=== PATIENT | female | born 1945 | race Caucasian/White ===

== ENCOUNTER 2025-01-21 11:00 | Inpatient (IN) ==
[2025-01-21] MEDS: ONDANSETRON 4 MG/2 ML VIAL IV ONE (11:32)
[2025-01-21] MEDS: HYDROmorphone 0.5 MG/0.5 ML SYRINGE IV PRN ×2 (11:56→15:02)
[2025-01-21 12:20] LABS: Basophils # (Auto) 0.02 K/mcL (0.00-0.30); Basophils % (Auto) 0.1 % (0.0-2.0); Eosinophils # (Auto) 0.26 K/mcL (0.00-0.70); Eosinophils % (Auto) 1.9 % (0.0-7.0); Hematocrit 35.9 % (34.1-44.9); Hemoglobin 11.4 g/dL (11.2-15.7); Lymphocytes # (Auto) 0.91 K/mcL (1.50-4.80); Lymphocytes % (Auto) 6.7 % (15.5-49.0); Mean Cell Volume 98.6 fL (80.0-100.0); Mean Corpuscular HGB Conc 31.8 g/dL (31.0-36.0); Mean Platelet Volume 9.9 fL (8.8-12.5); Monocytes # (Auto) 0.61 K/mcL (0.10-0.90); Monocytes % (Auto) 4.5 % (1.0-12.0); Neutrophils % (Auto) 85.9 % (38.0-78.0); Platelet Count 215 K/mcL (140-440); RBC 3.64 M/mcL (3.59-5.38); Red Cell Distribution Width 14.1 % (11.5-14.5); WBC 13.5 K/mcL (4.5-11.0)
[2025-01-21 12:38] LABS: INR 0.9 (0.9-1.1); Prothrombin Time 12.8 sec (11.9-14.5)
[2025-01-21 12:39] LABS: ALT/SGPT 26 U/L (<40); AST/SGOT 25 U/L (<32); Albumin 3.8 gm/dL (3.2-5.2); Albumin/Globulin Ratio 1.8 (1.0-2.3); Alkaline Phosphatase 68 U/L (39-117); Bilirubin,Total 0.5 mg/dL (0.1-1.0); Blood Urea Nitrogen 40 mg/dL (8-23); Calcium 9.2 mg/dL (8.6-10.4); Carbon Dioxide 26 mmol/L (22-30); Chloride 105 mmol/L (96-108); Globulin 2.1 gm/dL (2.2-3.7); Glomerular Filtration Rate 32; Glucose 163 mg/dL (70-105); Potassium 3.7 mmol/L (3.3-5.1); Sodium 142 mmol/L (133-145)
[2025-01-21 13:15] LABS: Appearance,Urine Clear (Clear); Bilirubin,Urine Negative (Negative); Color,Urine Yellow; Glucose,Urine (UA) Negative (Negative); Ketones,Urine Negative (Negative); Leukocyte Esterase,Urine Negative /uL (Negative); Nitrate,Urine Negative (Negative); PH,Urine 5.5 (5.0-9.0); Protein,Urine Negative (Negative); Specific Gravity,Urine 1.015 (1.000-1.035); Urine Blood Negative ery/mcL (Negative); Urobilinogen,Urine Normal
[2025-01-21] MEDS ORDERED: HYDROcodone/APAP 5/325MG TABLET PO PRN (14:07)
[2025-01-21] MEDS: ACETAMINOPHEN 1,000 MG/100 ML BAG IV SCH (14:39)
[2025-01-21] MEDS: 0.9 % SODIUM CHLORIDE 1,000 ML IV SCH (14:39)
[2025-01-21] MEDS: 0.9 % SODIUM CHLORIDE 10 ML SYRINGE IV SCH (14:39)
[2025-01-21] MEDS ORDERED: PROPOFOL 200 MG/20 ML VIAL IV ONE (16:33)
[2025-01-21] MEDS ORDERED: DEXAMETHASONE 10 MG/ML VIAL ONE (16:33)
[2025-01-21] MEDS ORDERED: TRANEXAMIC ACID 1,000 MG/10 ML VIAL ONE (16:33)
[2025-01-21] MEDS ORDERED: LIDOCAINE 2% PF 5 ML VIAL ONE (16:33)
[2025-01-21] MEDS ORDERED: KETAMINE 50 MG/ML Syringe IV ONE (16:33)
[2025-01-21] MEDS ORDERED: ONDANSETRON 4 MG/2 ML VIAL ONE (16:33)
[2025-01-21] MEDS ORDERED: ceFAZolin 1 GM VIAL ONE (17:34)
[2025-01-21] MEDS ORDERED: HYDROmorphone 0.5 MG/0.5 ML SYRINGE IV PRN (18:26)
[2025-01-21] MEDS ORDERED: diphenhydrAMINE 50 MG/ML VIAL IV PRN (18:26)
[2025-01-21] MEDS ORDERED: NALOXONE HCL 0.4 MG/ML VIAL IV PRN (18:26)
[2025-01-21] MEDS ORDERED: fentaNYL 100 MCG/2 ML VIAL IV PRN (18:26)
[2025-01-21] MEDS ORDERED: IPRATROPIUM/ALBUTEROL 3 ML AMPUL.NEB NEB PRN (18:26)
[2025-01-21] MEDS ORDERED: LACTATED RINGERS 250 ML IV PRN (18:26)
[2025-01-21] MEDS ORDERED: ONDANSETRON 4 MG/2 ML VIAL IV PRN (18:26)
[2025-01-21] MEDS ORDERED: ePHEDrine 50 MG/ML AMPUL IV ONE (18:30)
[2025-01-21] MEDS ORDERED: MAGNESIUM HYDROXIDE 30 ML ORAL.SUSP PO PRN (18:41)
[2025-01-21] MEDS ORDERED: POLYETHYLENE GLYCOL 3350 17 GM PACKET PO PRN (18:41)
[2025-01-21] MEDS ORDERED: BISACODYL 10 MG SUPP.RECT PR PRN (18:41)
[2025-01-21] MEDS ORDERED: BENZOCAINE/MENTHOL 1 LOZENGE PO PRN (18:41)
[2025-01-21] MEDS ORDERED: FLEETS ADULT 1 DOSE ENEMA PR PRN (18:41)
[2025-01-21] MEDS ORDERED: HYDROcodone/APAP 10/325MG TABLET PO PRN (18:41)
[2025-01-21] MEDS ORDERED: METHOCARBAMOL 750 MG TABLET PO PRN (18:41)
[2025-01-21] MEDS: METHOCARBAMOL 1,000 MG/10 ML VIAL IV PRN (19:34)
[2025-01-21] MEDS: LACTATED RINGERS 1,000 ML IV SCH (20:07)
[2025-01-21] MEDS: ceFAZolin 2 GM in DEXTROSE 5% IN WATER 50 ML IV SCH (20:07)
[2025-01-21] MEDS: DOCUSATE SODIUM 100 MG CAPSULE PO SCH (20:08)
[2025-01-21] MEDS: SENNOSIDES 1 TABLET PO SCH (20:08)
[2025-01-21] MEDS: 0.45 % SODIUM CHLORIDE 1,000 ML IV SCH (20:08)
[2025-01-21] MEDS ORDERED: SENNOSIDES 1 TABLET PO SCH (21:00)
[2025-01-21] MEDS ORDERED: DOCUSATE SODIUM 100 MG CAPSULE PO SCH (21:00)
[2025-01-22] MEDS: ceFAZolin 1 GM VIAL IV SCH (00:06)
[2025-01-22 05:58] LABS: Basophils # (Auto) 0 K/mcL (0.00-0.30); Basophils % (Auto) 0 % (0.0-2.0); Eosinophils # (Auto) 0 K/mcL (0.00-0.70); Eosinophils % (Auto) 0 % (0.0-7.0); Hematocrit 35.9 % (34.1-44.9); Hemoglobin 11.3 g/dL (11.2-15.7); Lymphocytes # (Auto) 0.34 K/mcL (1.50-4.80); Lymphocytes % (Auto) 2.5 % (15.5-49.0); Mean Cell Volume 99.7 fL (80.0-100.0); Mean Corpuscular HGB Conc 31.5 g/dL (31.0-36.0); Mean Platelet Volume 10.2 fL (8.8-12.5); Monocytes # (Auto) 0.33 K/mcL (0.10-0.90); Monocytes % (Auto) 2.4 % (1.0-12.0); Neutrophils % (Auto) 94.9 % (38.0-78.0); Platelet Count 245 K/mcL (140-440); WBC 13.8 K/mcL (4.5-11.0)
[2025-01-22] MEDS: oxyCODONE IR 5 MG TABLET PO PRN (07:02)
[2025-01-22 07:09] LABS: ALT/SGPT 24 U/L (<40); AST/SGOT 32 U/L (<32); Albumin 3.8 gm/dL (3.2-5.2); Albumin/Globulin Ratio 1.7 (1.0-2.3); Alkaline Phosphatase 72 U/L (39-117); Bilirubin,Direct < 0.2 mg/dL (0-0.3); Bilirubin,Total 0.3 mg/dL (0.1-1.0); Blood Urea Nitrogen 34 mg/dL (8-23); Carbon Dioxide 21 mmol/L (22-30); Chloride 104 mmol/L (96-108); Globulin 2.2 gm/dL (2.2-3.7); Glomerular Filtration Rate 32; Glucose 175 mg/dL (70-105); Lactate Dehydrogenase 239 U/L (135-225); Phosphorous 4.2 mg/dL (2.5-4.5); Sodium 143 mmol/L (133-145); Triglycerides 90 mg/dL (<150); Uric Acid 4.5 mg/dL (2.5-8.0)
[2025-01-22] MEDS: ONDANSETRON 4 MG/2 ML VIAL IV PRN (07:58)
[2025-01-22] MEDS ORDERED: DEXTROSE 31 GM ORAL.SUSP PO PRN (08:07)
[2025-01-22] MEDS ORDERED: DEXTROSE 50% 50 ML VIAL IV PRN (08:07)
[2025-01-22] MEDS: FUROSEMIDE 40 MG TABLET PO SCH (08:44)
[2025-01-22] MEDS: PANTOPRAZOLE 40 MG TABLET PO SCH (08:45)
[2025-01-22] MEDS: GABAPENTIN 100 MG CAPSULE PO SCH (08:45)
[2025-01-22] MEDS: ALLOPURINOL 300 MG TABLET PO SCH (08:45)
[2025-01-22] MEDS: METOPROLOL SUCCINATE 50 MG TAB.XL.24H PO SCH (08:45)
[2025-01-22] MEDS: ASPIRIN 81 MG TAB.CHEW PO SCH (08:45)
[2025-01-22] MEDS: ATORVASTATIN 40 MG TABLET PO SCH (08:46)
[2025-01-22] MEDS: HYDROmorphone 0.5 MG/0.5 ML SYRINGE IV PRN (11:07)
[2025-01-22] MEDS: INSULIN LISPRO 1 UNIT/0.01 ML UNIT SQ SCH (11:52)
[2025-01-22] MEDS ORDERED: ZOLPIDEM 5 MG TABLET PO PRN (21:00)
[2025-01-22] MEDS: MIRTAZAPINE 15 MG TABLET PO SCH (21:01)
[2025-01-23 06:45] LABS: Basophils # (Auto) 0.01 K/mcL (0.00-0.30); Basophils % (Auto) 0.1 % (0.0-2.0); Eosinophils # (Auto) 0.03 K/mcL (0.00-0.70); Eosinophils % (Auto) 0.2 % (0.0-7.0); Hematocrit 30.4 % (34.1-44.9); Hemoglobin 9.7 g/dL (11.2-15.7); Lymphocytes # (Auto) 0.82 K/mcL (1.50-4.80); Lymphocytes % (Auto) 6.3 % (15.5-49.0); Mean Cell Volume 98.1 fL (80.0-100.0); Mean Corpuscular HGB Conc 31.9 g/dL (31.0-36.0); Mean Platelet Volume 10.2 fL (8.8-12.5); Monocytes # (Auto) 0.61 K/mcL (0.10-0.90); Monocytes % (Auto) 4.7 % (1.0-12.0); Neutrophils % (Auto) 88.5 % (38.0-78.0); Platelet Count 212 K/mcL (140-440); Red Cell Distribution Width 14.4 % (11.5-14.5)
[2025-01-23 14:52] LABS: Hematocrit 30.5 % (34.1-44.9); Hemoglobin 9.7 g/dL (11.2-15.7)
[2025-01-23 15:02] LABS: ALT/SGPT 9 U/L (<40); AST/SGOT 38 U/L (<32); Albumin 3.4 gm/dL (3.2-5.2); Albumin/Globulin Ratio 1.5 (1.0-2.3); Alkaline Phosphatase 69 U/L (39-117); Bilirubin,Direct < 0.2 mg/dL (0-0.3); Bilirubin,Total 0.3 mg/dL (0.1-1.0); Blood Urea Nitrogen 45 mg/dL (8-23); Calcium 8.7 mg/dL (8.6-10.4); Carbon Dioxide 24 mmol/L (22-30); Chloride 102 mmol/L (96-108); Globulin 2.3 gm/dL (2.2-3.7); Glomerular Filtration Rate 32; Glucose 121 mg/dL (70-105); Lactate Dehydrogenase 248 U/L (135-225); Phosphorous 3.4 mg/dL (2.5-4.5); Potassium 4.2 mmol/L (3.3-5.1); Sodium 138 mmol/L (133-145); Triglycerides 158 mg/dL (<150); Uric Acid 4.3 mg/dL (2.5-8.0)
[2025-01-24 06:12] LABS: Basophils # (Auto) 0.01 K/mcL (0.00-0.30); Basophils % (Auto) 0.1 % (0.0-2.0); Eosinophils # (Auto) 0.37 K/mcL (0.00-0.70); Eosinophils % (Auto) 3.6 % (0.0-7.0); Hematocrit 27.8 % (34.1-44.9); Hemoglobin 8.9 g/dL (11.2-15.7); Lymphocytes # (Auto) 1.12 K/mcL (1.50-4.80); Lymphocytes % (Auto) 10.8 % (15.5-49.0); Mean Cell Volume 98.9 fL (80.0-100.0); Mean Platelet Volume 10.4 fL (8.8-12.5); Monocytes # (Auto) 0.55 K/mcL (0.10-0.90); Monocytes % (Auto) 5.3 % (1.0-12.0); Neutrophils % (Auto) 79.9 % (38.0-78.0); Platelet Count 202 K/mcL (140-440); RBC 2.81 M/mcL (3.59-5.38); Red Cell Distribution Width 14.5 % (11.5-14.5); WBC 10.4 K/mcL (4.5-11.0)
[2025-01-24 06:31] LABS: Blood Urea Nitrogen 47 mg/dL (8-23); Calcium 9.1 mg/dL (8.6-10.4); Carbon Dioxide 26 mmol/L (22-30); Chloride 103 mmol/L (96-108); Glomerular Filtration Rate 35; Glucose 114 mg/dL (70-105); Potassium 4.5 mmol/L (3.3-5.1); Sodium 139 mmol/L (133-145)
[2025-01-24 14:55] LABS: Hematocrit 34.2 % (34.1-44.9); Hemoglobin 10.4 g/dL (11.2-15.7)
[2025-01-24] MEDS: ACETAMINOPHEN 325 MG TABLET PO PRN (15:56)
[2025-01-25] MEDS: ONDANSETRON 4 MG ODT TABLET SL PRN (09:41)
== END 2025-01-25 12:30 | disposition home or self-care (01) | DRG 522 ==
LOC: ED 11:00 → MEDSUR 13:59
PROVIDERS: ADMIT Internal Medicine; ATTEND Internal Medicine
PROC: HEMIHIP (2025-01-21 17:25)